=== PATIENT | male | born 1965 | race Caucasian/White ===

== ENCOUNTER 2016-04-11 11:48 | Emergency (ER) | payer OTHER ==
[~2016-04-11] VITALS: Ht 172.7 cm; Wt 108.9 kg
[2016-04-11] MEDS ORDERED: GLUCOPHAGE1000 MG PO (11:55)
[2016-04-11] MEDS ORDERED: LISINOPRIL5 MG PO (11:55)
[2016-04-11] MEDS ORDERED: HIGH CHOLESTEROL (11:55)
[2016-04-11] MEDS ORDERED: ACYCLOVIR400 MG PO (11:55)
[2016-04-11] MEDS ORDERED: AUGMENTIN 875-875 MG PO (12:51)
== END 2016-04-11 12:56 | disposition home or self-care (01) ==
LOC: ED 11:48
DX: J02.9 Acute pharyngitis, unspecified (principal); Z88.1 Allergy status to other antibiotic agents